=== PATIENT | female | born 1990 | race Caucasian/White ===

== ENCOUNTER 2017-11-13 16:30 | Emergency (ER) | payer BC ==
[~2017-11-13] VITALS: Ht 170.2 cm; Wt 92.1 kg
== END 2017-11-13 20:34 | disposition home or self-care (01) ==
LOC: ER 16:30 → FSED 20:34
DX: R10.32 Left lower quadrant pain (principal); Z87.442 Personal history of urinary calculi
CPT/HCPCS: 74176; 80048; 81003; 81025; 85025; 99284